=== PATIENT | male | born 1965 | race Caucasian/White ===

== ENCOUNTER 2017-06-26 16:08 | Emergency (ER) | payer BC ==
[2017-06-26] MEDS ORDERED: DiphenhydrAMINE 50 mg/ml Inj IVP STA (17:15)
[2017-06-26] MEDS ORDERED: Sodium Chloride 0.9% 1,000 ML IV STA (17:15)
[2017-06-26] MEDS ORDERED: Famotidine 20mg/50ml 20 MG/50 ML BAG IVPB STA (17:15)
--- NOTE | 2017-06-26 17:15 | ED PDOC ---
Arrival/HPI - General Chief Complaint: Headache Time Seen by Provider: 06/26/17 17:14 Historian: Patient - History of Present Illness Narrative History of Present Illness (Text): 06/26/17 17:14 This 51 yo male with pmh migraines, presents to this ED c/o Headache since this morning. Patient stated he took Sumatriptan 50 mg tab x once, and then repeated another dose 2 hours later. Past Medical History - Cardiac Hx Cardiac Disorders: No - Pulmonary Hx Respiratory Disorders: No - Neurological Hx Headaches: Yes - HEENT Hx HEENT Disorder: No - Renal Hx Renal Disorder: No - Endocrine/Metabolic Hx Endocrine Disorders: No - Hematological/Oncological Hx Blood Disorders: No - Integumentary Hx Dermatological Disorder: No - Musculoskeletal/Rheumatological Hx Musculoskeletal Disorders: No - Gastrointestinal Hx Gastrointestinal Disorders: No - Genitourinary/Gynecological Hx Genitourinary Disorders: No - Psychiatric Hx Psychophysiologic Disorder: No Hx Substance Use: No Family/Social History Smoking Status: Never Smoked Hx Alcohol Use: No Hx Substance Use: No Allergies/Home Meds Allergies/Adverse Reactions: Allergies No Known Allergies Allergy (Verified 06/26/17 16:13) Home Medications: Home Meds Medication Instructions Recorded Confirmed SUMAtriptan [Imitrex Tab] 50 mg PO PRN PRN 06/26/17 06/26/17 Physical Exam Vital Signs Temp Pulse Resp BP Pulse Ox 06/26/17 17:44 69 18 135/74 98 06/26/17 16:14 97.5 F L 72 16 137/85 96 Medical Decision Making ED Course and Treatment: 06/26/17 19:19 Re-evaluation. Patient feels better. Discussed results and plan with patient who expresses understanding. All questions answered and there is agreement with the plan to discharge home with instructions. Patient stable for discharge. Return if symptoms persist or worsen. Re-evaluation Time: 19:19 Reassessment Condition: Re-examined, Improved - RAD Interpretation Narrative RAD Interpretations (Text): 06/26/17 18:22 Patient Name / ID : SHELLY HUITRON / [id number] Exam Date : 06/26/2017 17:30:11 ( Approved ) Study Comment : Sex / Age : M / 51Y Creator : PRASANNA GARLAND Dictator : Video Game Designer : Cash Crop Farmer : MEREDITH GARLANDY Approver2 : Report Date : 06/26/2017 17:59:00 My Comment : [facility] [address] [address] Tel. no. Patient Name: TOMY BRAVO Pt. Address: [address] [place] [address] Rec #: [id number] [place] [address]: Carrie Liu PA-C Pt Order Location: ED : 1965 Male Age: 51 Order #: [id number] Reason for exam: MARSH CT Scan HEAD W/O CONTRAST Exam Date: 06/26/17 This imaging exam was performed at [facility] EXAM: CT Head Without Intravenous Contrast EXAM DATE/TIME: 06/26/2017 5:16 PM CLINICAL HISTORY: 51 years old, male; Pain; Headache; Headache not specified; Patient HX: Headache, nausea, dizzy; Additional info: MARSH TECHNIQUE: Axial computed tomography images of the head/brain without intravenous contrast. All CT scans at this facility use one or more dose reduction techniques, viz.: automated exposure control; ma/kV adjustment per patient size (including targeted exams where dose is matched to indication; i.e. head); or iterative reconstruction technique. COMPARISON: There are no prior studies for comparison. FINDINGS: Brain: Ventricles are normal in size and configuration. There is no midline shift. There is mild prominence of sulci and gyri There are no intra-axial or extra-axial mass lesions or areas of hemorrhage. There are no abnormal fluid collections. Bennett-white differentiation is maintained. Ventricles: See above. Bones: Cranial vault is intact. Soft tissues: unremarkable Sinuses: There is no acute sinusitis. There is mucoperiosteal thickening in the right frontal sinus and scattered right ethmoid air cells. Ears and mastoids: Middle ears and mastoids are unremarkable Orbits: Orbital contents are unremarkable. IMPRESSION: No acute intracranial abnormality Dictated By: Prasanna Garland MD, MD Dictated Date/Time: 06/26/171758 Signed By: Prasanna Garland MD Date Signed: 1758 Transcribed By: BARRY Transcribe Date/Time : 06/26/171758 PATTI/DELBERT Radiology Orders: 06/26/17 17:16 HEAD W/O CONTRAST [CT] Stat - Medication Orders Current Medication Orders: Discontinued Medications Diphenhydramine HCl (Benadryl) 50 mg IVP STAT STA Stop: 06/26/17 17:16 Last Admin: 06/26/17 18:20 Dose: 50 mg IVP Administration Document 06/26/17 18:20 [email or web address] (Rec: 06/26/17 18:20 [id number]) Charges for Administration # of IVP Administrations 1 Famotidine (Pepcid 20mg/50ml Premix) 20 mg in 50 mls @ 100 mls/hr IVPB STAT STA Stop: 06/26/17 17:44 Last Admin: 06/26/17 18:20 Dose: 100 mls/hr eMAR Start Stop Document 06/26/17 18:20 [email or web address] (Rec: 06/26/17 18:20 [email or web address] [id number]) Intravenous Solution Start Date 06/26/17 Start Time 18:20 End Date 06/26/17 Sodium Chloride (Sodium Chloride 0.9%) 1,000 mls @ 999 mls/hr IV .Q1H1M STA Stop: 06/26/17 18:15 Last Admin: 06/26/17 17:29 Dose: 999 mls/hr eMAR Start Stop Document 06/26/17 17:29 [email or web address] (Rec: 06/26/17 17:29 [id number] Intravenous Solution Start Date 06/26/17 Start Time 17:29 End Date 06/26/17 Ketorolac Tromethamine (Toradol) 30 mg IVP STAT STA Stop: 06/26/17 18:59 Last Admin: 06/26/17 19:04 Dose: 30 mg MAR Pain Assessment Document 06/26/17 19:04 HI (Rec: 06/26/17 19:09 HI [id number]) Pain Reassessment Is this a pain reassessment? No Sleep Is patient sleeping during reassessment? No Presence of Pain Presence of Pain Yes Location Pain Location Body Sample Wrapper IVP Administration Document 06/26/17 19:04 HI (Rec: 06/26/17 19:09 HI [id number]) Charges for Administration # of IVP Administrations 1 Metoclopramide HCl (Reglan) 10 mg IVP STAT STA Stop: 06/26/17 17:16 Last Admin: 06/26/17 18:20 Dose: 10 mg IVP Administration Document 06/26/17 18:20 [email or web address] (Rec: 06/26/17 18:20 [email or web address] [id number] [id number]) Charges for Administration # of IVP Administrations 1 Disposition/Present on Arrival - Present on Arrival Any Indicators Present on Arrival: No History of DVT/PE: No History of Uncontrolled Diabetes: No Urinary Catheter: No History of Decub. Ulcer: No History Surgical Site Infection Following: None - Disposition Have Diagnosis and Disposition been Completed?: Yes Diagnosis: Headache Disposition: HOME/ ROUTINE Disposition Time: 19:19 Patient Plan: Discharge Patient Problems: Current Active Problems Problem Status Onset Headache Acute Condition: GOOD Discharge Instructions (ExitCare): General Headache (ED) Additional Instructions: Call private doctor for follow up visit in 1-2 days. Take medication as instructed. Return to emergency if symptoms worsen. Call neurologist for revaluation. Prescriptions: Metoclopramide HCl [Reglan] 10 mg PO Q6 PRN #10 tablet PRN Reason: Headache Referrals: PCP,NO [Primary Care Provider] - Follow up with primary August Albarado MD [Staff Provider] - Follow up with primary Forms: [employer] (French), WORK NOTE
[2017-06-26 17:45] VITALS: BP 135/74
--- NOTE | 2017-06-26 17:59 | CT ---
EXAM: CT Head Without Intravenous Contrast EXAM DATE/TIME: 06/26/2017 5:16 PM CLINICAL HISTORY: 51 years old, male; Pain; Headache; Headache not specified; Patient HX: Headache, nausea, dizzy; Additional info: MARSH TECHNIQUE: Axial computed tomography images of the head/brain without intravenous contrast. All CT scans at this facility use one or more dose reduction techniques, viz.: automated exposure control; ma/kV adjustment per patient size (including targeted exams where dose is matched to indication; i.e. head); or iterative reconstruction technique. COMPARISON: There are no prior studies for comparison. FINDINGS: Brain: Ventricles are normal in size and configuration. There is no midline shift. There is mild prominence of sulci and gyri There are no intra-axial or extra-axial mass lesions or areas of hemorrhage. There are no abnormal fluid collections. Bennett-white differentiation is maintained. Ventricles: See above. Bones: Cranial vault is intact. Soft tissues: unremarkable Sinuses: There is no acute sinusitis. There is mucoperiosteal thickening in the right frontal sinus and scattered right ethmoid air cells. Ears and mastoids: Middle ears and mastoids are unremarkable Orbits: Orbital contents are unremarkable. IMPRESSION: No acute intracranial abnormality
[2017-06-26 19:45] VITALS: PULSE 70; TEMP 98.3; O2SAT 99
[2017-06-26 19:46] VITALS: RESP 19
== END 2017-06-26 19:46 | disposition home or self-care (01) ==
LOC: ED 16:08
DX: R51 Headache (principal)
CPT/HCPCS: 70450; 96374; 96375; 99285; J1200; J1885; J2765; J7040